=== PATIENT | female | born 1970 | race Caucasian/White ===

== ENCOUNTER → 2017-03-27 | Outpatient (CLI) | payer BC ==
--- NOTE | 2017-03-27 13:01 | DI ---
Indication: ITS.REASON: M79.672 PAIN IN LEFT FOOT PROCEDURE: FOOT LEFT 3 VIEWS: Encounter: Initial Comparison: None Findings: There is no acute fracture, dislocation or malalignment identified. Chronic appearing deformity of the first metatarsal head and proximal phalanx of the great toe which could be congenital or due to old trauma. Impression: No acute osseous abnormality. .
== END ==
LOC: IMA 12:24
PROVIDERS: ATTEND Family Medicine
DX: M79.672 Pain in left foot (principal); M21.6X2 Other acquired deformities of left foot